=== PATIENT | male | born 1960 | race African-American/Black ===

== ENCOUNTER 2022-03-24 09:40 | Outpatient (CLI) | payer OTHER | END 2022-03-24 09:41 | disposition home or self-care (01) | LOC: BICRAD 09:40 | PROVIDERS: ATTEND Family Medicine | DX: M54.2 Cervicalgia (principal); M47.812 Spondylosis without myelopathy or radiculopathy, cervical region | CPT/HCPCS: 72040 ==

== ENCOUNTER 2022-04-30 14:53 | Outpatient (CLI) | payer OTHER | END 2022-04-30 14:54 | disposition home or self-care (01) | LOC: BICRAD 14:53 | PROVIDERS: ATTEND Nurse Practitioner Family | DX: M25.562 Pain in left knee (principal); M25.551 Pain in right hip; M16.11 Unilateral primary osteoarthritis, right hip; M25.862 Other specified joint disorders, left knee; I99.8 Other disorder of circulatory system ==

== ENCOUNTER 2022-04-30 19:00 | Outpatient (CLI) | payer OTHER | END 2022-04-30 19:01 | disposition home or self-care (01) | LOC: SLEEPLAB 19:00 | PROVIDERS: ATTEND Family Medicine | DX: G47.33 Obstructive sleep apnea (adult) (pediatric) (principal); E11.9 Type 2 diabetes mellitus without complications; I10 Essential (primary) hypertension; R53.83 Other fatigue; G31.84 Mild cognitive impairment of uncertain or unknown etiology; R06.83 Snoring; R35.1 Nocturia | CPT/HCPCS: 95811 ==